=== PATIENT | female | born 1980 | race Caucasian/White ===

== ENCOUNTER 2019-11-13 16:37 | Emergency (ER) | payer OTHER, SELFPAY ==
[2019-11-13 16:50] VITALS: BP 110/87; PULSE 93; RESP 12; TEMP 36.9; O2SAT 96
[2019-11-13] MEDS: predniSONE 20 MG TABLET 60 MG PO (17:02)
--- NOTE | 2019-11-13 17:05 | ED.ABDPAIN ---
HPI - Abdominal Pain General Chief Complaint: Skin/Abscess/Foreign Body <Ranjit Acosta PA-C - Last Filed: 11/13/19 17:13> Stated Complaint: Spider bit <Ranjit Acosta PA-C - Last Filed: 11/13/19 17:13> Time Seen by Provider: 11/13/19 16:40 <Ranjit Acosta PA-C - Last Filed: 11/13/19 17:13> Source: patient <Ranjit Acosta PA-C - Last Filed: 11/13/19 17:13> Mode of arrival: ambulatory <Ranjit Acosta PA-C - Last Filed: 11/13/19 17:13> Limitations: no limitations <Ranjit Acosta PA-C - Last Filed: 11/13/19 17:13> History of Present Illness HPI narrative: Patient is a 39-year-old female who presents to emergency department for evaluation of rash to the posterior right thigh just below the buttock. Patient was camping on Saturday believes that she may have been bit by something is since developed a raised rash with burning and itching. Patient was started on doxycycline by primary care when the rash worsened Saturday. Patient on arrival resting comfortably in the room afebrile nontoxic-appearing no distress. Patient denies any other complaints <Ranjit Acosta PA-C - Last Filed: 11/13/19 17:13> Related Data Allergies/Adverse Reactions: Allergies Allergy/AdvReac Type Severity Reaction Status Date / Time No Known Allergies Allergy Mild Verified 11/13/19 16:54 <Ranjit Acosta PA-C - Last Filed: 11/13/19 17:13> Review of Systems Review of Systems: All systems reviewed & are unremarkable except as noted in HPI and below <Ranjit Acosta PA-C - Last Filed: 11/13/19 17:13> PMFSH Social History Social History: Social History (Updated 11/13/19 @ 17:06 by Ranjit Acosta PA-C) Smoking status: Never smoker <Ranjit Acosta PA-C - Last Filed: 11/13/19 17:13> Exam Narrative: Exam Narrative: GENERAL: Well-appearing, well-nourished, and in no acute distress. HEAD: Normocephalic, atraumatic. EYES: PERRLA and EOMI. ENT: Nares clear, no rhinorrhea or epistaxis. Mucous membranes moist. EXTREMITIES: Normal range of motion. No edema. SKIN: Warm, dry, patient with raised rash with a large patch over the right posterior thigh and other small areas with small raised lesions that appear to be fluid containing no lymphangitic streaking no fluctuance NEURO: No focal deficits. Alert and oriented x3. Neurovascularly intact PSYCH: Normal mood and affect. <Ranjit Acosta PA-C - Last Filed: 11/13/19 17:13> Course Course Emergency Course: Patient in the room in no distress at this time aware of case findings treatment plan and diagnosis <Ranjit Acosta PA-C - Last Filed: 11/13/19 17:13> Vital Signs Vital signs: Vital Signs Temperature 98.4 F 11/13/19 16:50 Pulse Rate 93 11/13/19 16:50 Respiratory Rate 12 11/13/19 16:50 Blood Pressure 110/87 11/13/19 16:50 Pulse Oximetry 96 11/13/19 16:50 Temperature 98.4 F 11/13/19 16:50 Pulse Rate 62 11/13/19 17:21 Respiratory Rate 14 11/13/19 17:21 Blood Pressure 111/70 11/13/19 17:21 Pulse Oximetry 99 11/13/19 17:21 <Ranjit Acosta PA-C - Last Filed: 11/13/19 17:13> Vital Signs Temperature 98.4 F 11/13/19 16:50 Pulse Rate 93 11/13/19 16:50 Respiratory Rate 12 11/13/19 16:50 Blood Pressure 110/87 11/13/19 16:50 Pulse Oximetry 96 11/13/19 16:50 Temperature 98.4 F 11/13/19 16:50 Pulse Rate 62 11/13/19 17:21 Respiratory Rate 14 11/13/19 17:21 Blood Pressure 111/70 11/13/19 17:21 Pulse Oximetry 99 11/13/19 17:21 <Elyse Ruelas MD - Last Filed: 12/05/19 13:09> MDM - Abdominal Pain MDM Narrative Medical decision making narrative: Patient in the room at this time aware of case findings treatment plan and diagnosis will be given a dose of steroid in the emergency department followed by tomorrow. Unclear as to whether or not this is Rhus dermatitis or a reaction to an insect bite. Patient advised to continue h
[2019-11-13 17:21] VITALS: BP 111/70; PULSE 62; RESP 14; O2SAT 99
== END 2019-11-13 17:23 | disposition home or self-care (01) ==
PROVIDERS: Emergency Provider Emergency Medicine; PCP Nurse Practitioner Adult Health
DX: R21 Rash and other nonspecific skin eruption (principal)
CPT/HCPCS: 99283; J7512

== ENCOUNTER 2022-01-24 13:56 | Outpatient (CLI) | payer OTHER, SELFPAY ==
--- NOTE | ~2022-01-24 | US_ITS ---
EXAMINATION: US venous doppler LE RT DATE: 01/24/2022 15:04 INDICATION: Right lower limb swelling TECHNIQUE: Mahmood scale images without and with compression and Doppler images of the right lower extre mity veins were obtained. COMPARISON: None FINDINGS: The right common femoral vein, profunda femoral vein, femoral vein, popliteal vein, peronea l trunk, posterior tibial veins, and greater saphenous vein are patent. No sonographic abnormality is seen in the anterior soft tissues of the leg in the area of clinical concern. IMPRESSION: 1. Patent right lower extremity veins. No evidence of deep venous thrombosis. Reviewed, dictated and finalized at location A.
== END 2022-01-24 13:57 | disposition home or self-care (01) ==
PROVIDERS: PCP Nurse Practitioner Adult Health; Visit Provider Nurse Practitioner Adult Health
DX: M79.661 Pain in right lower leg (principal)
CPT/HCPCS: 93971

== ENCOUNTER → 2022-01-30 12:20 | Outpatient (CLI) | payer OTHER, SELFPAY ==
--- NOTE | ~2022-01-30 | MM_ITS ---
EXAMINATION: MM screening [place] [facility] w esvin HISTORY: Screening TECHNIQUE: Craniocaudal and mediolateral oblique 3-D tomosynthesis images were obtained and synthetic 2-D images were generated. CAD analysis was submitted and interpreted. COMPARISON: No prior mammogram is available for comparison at this institution. BREAST PARENCHYMAL COMPOSITION: The breasts are heterogeneously dense, which may obscure small masses . FINDINGS: There is no evidence of suspicious mass, calcification, or architectural distortion to sugg est malignancy in either breast. There has been no suspicious interval change. IMPRESSION: 1. No mammographic evidence of malignancy. 2. Recommend routine screening mammography in one year. BI-RADS Category 1: Negative Reviewed, dictated and finalized at location A.
== END ==
PROVIDERS: PCP Nurse Practitioner Adult Health; Visit Provider Nurse Practitioner Adult Health
DX: Z12.31 Encounter for screening mammogram for malignant neoplasm of breast (principal)
CPT/HCPCS: 77063; 77067

== ENCOUNTER 2024-08-11 15:35 | Outpatient (CLI) | payer OTHER, SELFPAY ==
--- NOTE | ~2024-08-11 | MM_ITS ---
EXAMINATION: MM screening [place] [facility] w esvin HISTORY: Screening mammogram TECHNIQUE: Craniocaudal and mediolateral oblique 3-D tomosynthesis images were obtained and synthetic 2-D images were generated. CAD analysis was submitted and interpreted. COMPARISON: 01/30/2022 BREAST PARENCHYMAL COMPOSITION:Dense: The breasts are heterogeneously dense, which may obscure small masses. FINDINGS: No suspicious mass, calcification, or architectural distortion are identified in either al ast to suggest malignancy. There has been no suspicious interval change. IMPRESSION: No mammographic evidence of malignancy. Recommend routine screening mammography in one year. BI-RADS Category 1: Negative Reviewed, dictated and finalized at location . [employer]INCIPAL
== END 2024-08-11 15:36 | disposition home or self-care (01) ==
LOC: MICIMG 15:36
PROVIDERS: PCP Nurse Practitioner Adult Health; Visit Provider Obstetrics & Gynecology
DX: Z12.31 Encounter for screening mammogram for malignant neoplasm of breast (principal)
CPT/HCPCS: 77063; 77067

== ENCOUNTER 2025-07-21 11:36 | Emergency (ER) | payer OTHER, SELFPAY ==
--- OUTSIDE RECORDS SUMMARY | 2014-05-17 04:40 | XMS_ITS | Continuity of Care Document ---
Author Organization [facility] Address [address] [address] Phone Care Team Providers Care Manager Delivery Name Role Phone Gokul HARRIS, True Unavailable Unavailable Allergies, Adverse Reactions, Alerts Substance Reaction Status Criticality No Known Allergies Active No Inform ation Medications Medication Instructions Dosage Effective Dates (start - stop) Status Comments ranitidine 150 mg tablet take 1 tablet by oral route 2 times every day - Active Zyrtec 10 mg tablet take 1 tablet by oral route every day 10 MG - Active clobetasol 0.05 % topical cream apply by topical route 2 times every day a thin layer to the affected area(s) 0.00 - Active prednisone 10 mg tablet Take 6 tablets today and decrease by 1 tablet each day until finished - No Longer Active prednisone 20 mg tablet take (0.5MG/KG) by oral route every day 0.5 MG/KG - No Longer Active Procedures Procedure Date New (Level 4) OFFICE/OUTPATIENT VISIT Oc Advance Directives Directive Yes / No Effective Date File Name No Information Encounters Encounter Description Practice Location Reason(s) For Visit Diagnoses Date Provider Providers Copied on Encounter New (Level 4) OFFICE/OUTPA TIENT VISIT [facility], [address] [address], [place], [place], [id number], [place] tel:[phone] [facility] reaction, food (chief complaint) Idiopathic urticariaAllergic rhinitis, cause unspecifiedOther adverse food reactions, not elsewhere classified 4 Gokul Biswas. [address] [facility], [address], [place], [place], [id number] , [place]. tel:[phone] Referring Provider: True Parks, [address] [facility] [address], [place], [address] . tel:[phone] Family History Family Member Type Diagnosis Age At Onset Problem (finding) No family history of Au toimmune disease Problem (finding) No family history of Th yroid disorder Close relative Problem (finding) Hives Problem (finding) No family hist ory of Systemic lupus erythematosus Problem (finding) No family hist ory of Rheumatoid arthritis Payers Payer name Insurance type Covered green party ID Authoriza tion(s) No Information Social History Type Description Quantity Date Captured Comments Alcohol Use Details Unknown Caffeine Use Details Unknown Tobacco Use Status Never smoked tobacco 2013 Smoking Status Never smoker Non-Smoking Tobacco Use Details : No Details Available : No Details Available Sex Female Vital Signs Date / Time: Height Weight BMI Pulse Rate Blood Pressure Temperature Respiratory Rate Body Surface Area Head Circumference Head Circ. Percentile Wt./Akhil. Percentile BMI percentile Pulse Ox Inhaled Ox 10:30 AM 67.50 in 74.389 kg (164.00 lbs) 25.3 1 kg/m eter (2) 80 /min 118/74 mm[Hg] 98 % Chief Complaint And Reason For Visit From encounter dated '05/17/2014 10:40'. reaction, food (chief complaint). Description: Around 2014, she developed hives around 12:30 (after having eaten pasta, hot wings, crab cakes at 11:30), and she continued to have hives daily. She went to see her PCP on 05/07/2014, and she was treated with prednisone. The hives improved but didnot resolve when on prednisone. The hives worsened on 05/13/2014 after finishing prednisone on 05/11/2014. She inquires whether seafood exposure is the cause. She has not had coughing, wheezing, dyspnea, vomiting, diarrhea, abdominal pain, light- headedness, or other signs/symptoms of anaphylaxis associated with hives. She has not had any fevers, chills, unexplained changes in weight (gained 8 pounds in the past 2 months, but she is not eating as well and is not exercising), constipation, heat/cold intolerance, or arthralgias/arthritis. Most individual lesions last less than 24 hours but some last longer. The resolved lesions do not generally leave any residual pigmentary changes. She has not changed personal care products or medications. She is not taking any routine NSAIDs. She eats beef/pork at least 3 days per week. She has not had any recent tick bites, but she goes camping frequently. She used Jina 180mg every morning and Benadryl as needed, which helped with pruritus.NKDAPMH:AR, psoriasis, oral allergiesFH: cousin with hives; No SLE, RA, thyroid diseaseSH: no tobacco; 1 dog and 1 outside cat. Reason For Referral Reason For Referral No Information History Of Present Illness Encounter Date Complaint History Of Prese nt Illness reaction, food Around 2014 , she developed hives around 12:30 (after having eaten pasta, hot wings, crab cakes at 11:30), and she continued to have hives daily. She went to see her PCP on 05/07/2014, and she was treated with prednisone. The hives improved but did not resolve when on prednisone. The hives worsened on 05/13/2014 after finishing prednisone on 05/11/2014. She inquires whether seafood exposure is the cause. She has not had coughing, wheezing, dyspnea, vomiting, diarrhea, abdominal pain, light-headedness, or other signs/symptoms of anaphylaxis associated with hives. She has not had any fevers, chills, unexplained changes in weight (gained 8 pounds in the past 2 months, but she is not eating as well and is not exercising), constipation, heat/cold intolerance, or arthralgias/arthritis. Most individual lesions last less than 24 hours but some last longer. The resolved lesions do not generally leave any residual pigmentary changes. She has not changed personal care products or medications. She is not taking any routine NSAIDs. She eats beef/pork at least 3 days per week. She has not had any recent tick bites, but she goes camping frequently. She used Jina 180mg every morning and Benadryl as needed, which helped with pruritus.NKDAPMH: AR, psoriasis, oral allergiesFH: cousin with hives; No SLE, RA, thyroid diseaseSH: no tobacco; 1 dog and 1 outside cat. Functional Status Date Functional Assessmen t No Information Instructions Date Instruction Additional Infor laura If hives are not imp roving, the patient is to contact our office. Related to Idiopathic urticaria Assessments Type Assessment Date assessment Idiopathic urticaria assessment Allergic rhinitis, cause unspeci fied assessment Other adverse food reactions, no t elsewhere classified Patient Care Teams Name Effective Dates (start - stop) Status Members No Information
--- NOTE | ~2025-07-21 | XR_ITS ---
EXAMINATION: XR chest 2V DATE: 07/21/2025 12:53 INDICATION: Shortness of breath and chest pain TECHNIQUE: PA and lateral views of the chest were obtained. COMPARISON: None FINDINGS: The lungs are clear with no focal airspace opacities, pulmonary edema, pleural effusion or pneumothorax. The cardiomediastinal silhouette is normal. Mild to moderate lower thoracic spondylosis. IMPRESSION: 1. No acute cardiopulmonary disease. Reviewed, dictated and finalized at location A. FURNITURE [employer]KER
--- NOTE | 2025-07-21 11:37 | ECG_ITS ---
Test Date: 2025-07-21 11:41:35 Measurements Intervals Calvin Rate: 84 P: 55 AR: 152 QRS: 66 QRSD: 88 T: 37 QT: 331 QTc: 391 Interpretive Statements SINUS RHYTHM BASELINE ARTIFACT- I, II, AVR, AVL, V3 NORMAL ECG No previous ECG available for comparison Electronically Signed On 07-21-2025 18:54:03 SCRAP CHARGER by Terry Griffin D.O.
--- OUTSIDE RECORDS SUMMARY | 2025-07-21 11:38 | XMS_ITS | Encounter Summary ---
Author Organization [facility] Address [address] [place] [address] Care Team Providers Care Surveillance Sensor Officer Name Role Phone Deann Espitia Primary Care Provider [phone] Encounter Details Date Type Department Care Team (Late st Contact Info) Description 04/01/2024 Oh[place]at Message Enc [facility] Family [facility] Internal Medicine [facility] [address] [place] [address] Deann Espitia FNP [address] [place], [place] [phone] refill question Social History Tobacco Use Types Packs/Day Years Used Date Smoking Tobacco: Former Cigarettes Q uit: 02/27/2019 Passive Smoke Exposure: Past Smokeless Tobacco: Never Alcohol Use Standard Drinks/Week Comments Yes 0 (1 standard drink = 0.6 oz pur e alcohol) 5 days a week PHQ-2 Answer Date Recorded Patient Health Questionnaire-2 Score 1 02/28/2024 Comments No Sex and Gender Information Value Date Recorded Sex Assigned at Female 05/31/2025 2:22 PM BANKING OFFICER Legal Sex Female 10:39 AM BANKING OFFICER Gender Identity Female 05/31/2025 2:22 PM BANKING OFFICER Sexual Orientation Not on file documented as of this encounter Progress Notes * Diego Mcgrath, RTR - 04/01/2024 2:01 PM CDTFrom: Danita Cuello To: Deann Espitia Sent: 04/01/2024 1:23 PM CDT Subject: refill question I am almost finished with the phentermine. Do I need to come in and see you before a refill? I started with only a 1/2 pill for the first 5 days. documented in this encounter Plan of Treatment Not on file documented as of this encounter Visit Diagnoses Not on filedocumented in this encounter Additional Health Concerns Assessment Noted Time PHQ-9 Depression Total Score: 8 02/28/20 24 1:17 PM CDT documented as of this encounter Care Teams Surveillance Sensor Officer Relationship Specialty Start Date End Date Deann Espitia FNP [address] [place] [id number] PCP - General Nurse Practitioner Family 02/28/24 documented as of this encounter
--- OUTSIDE RECORDS SUMMARY | 2025-07-21 11:38 | XMS_ITS | Clinical Summary ---
Author Organization [facility] Address [address] [place] [address] Care Team Providers Care Scrum Product Owner Name Role Phone Deann Espitia DIMITRIOS Primary Care Provider [phone] Allergies Active Allergy Reactions Criticality Noted Date Comments Pineapple Hives,Itching 02/27/2024 Medications B complex-C Cap capsule Take 1 capsule by mouth daily. Active phentermine (ADIPEX-P) 37.5 MG tabletIndicatio ns:Overweight with body mass index (BMI) of 27 to 27.9 in adult Take 0.5-1 tablets (18.75-37.5 mg total) by mouth every morning before breakfast. # thirty 30 tablet 03/18/2025 Active phentermine (ADIPEX-P) 37.5 MG capsuleIndicati ons:Overweight with body mass index (BMI) of 28 to 28.9 in adult Take 1 capsule (37.5 mg total) by mouth before breakfast. 30 capsule 1 05/31/2025 Active topiramate (TOPAMAX) 25 MG tabletIndicatio ns:Overweight with body mass index (BMI) of 28 to 28.9 in adult Take 1 tablet (25 mg total) by mouth daily. 90 tablet 1 05/31/2025 Active Active Problems Problem Noted Date Diagnosed Date Intermittent palpitations 05/31/2025 Elevated low density lipoprotein (LDL) cholester ol level 06/01/2024 Overweight with body mass in dex (BMI) of 28 to 28.9 in adult 02/28/2024 Tick bite, unspecified site, subsequent encounte r 02/28/2024 Polyarthralgia 02/28/2024 Family history of diabetes mellitus (DM) 024 Chronic fatigue 02/28/2024 Vitamin D deficiency, unspecified 02/28/2024 Psoriasis 02/28/2024 Rosacea 02/28/2024 Resolved Problems Problem Noted Date Diagnosed Date Resolved Date Ankle pain 02/27/2024 05/31/2025 Encounters Date Type Department Care Team Description 06/29/2025 Results Follow-Up [facility] [address] [address] Deann Espitia FNP HEMOGLOBIN, GLYCOSYLATED, MAGNESIUM, FOLIC ACID SERUM, Additional followed-up results: 8 06/28/2025 9:20 AM CASH CROP FARMER Laboratory Only [address] [address] Deann Espitia FNP 06/28/2025 Travel 05/31/2025 2:20 PM CASH CROP FARMER Office Visit [facility] [address] [address] Deann Espitia FNP Annual (No concerns); Menopause (Pt has concerns she may be in perimenopause ) 05/31/2025 Travel from Last 3 Months Immunizations Immunization Administration Dates Next Due Influenza Adult (Generic) 05/14/2016 Tdap (Adacel) 06/01/2024 Family History Medical History Relation Comments Hypertension Father Cancer Maternal Grandfather pancreatic Alzheimer's disease Maternal Grandmother Cancer Maternal Grandmother Hypertension Mother Cancer Paternal Grandfather Heart Disease Paternal Grandmother Relation Status Comments Father Alive Maternal Grandfather Maternal Grandmother Mother Alive Paternal Grandfather Paternal Grandmother (Age 57) Social History Tobacco Use Types Packs/Day Years Used Date Smoking Tobacco: Former Cigarettes Q uit: 02/27/2019 Passive Smoke Exposure: Past Smokeless Tobacco: Never Tobacco Cessation:Counseling Given: No Comments:Vape Alcohol Use Standard Drinks/Week Comments Yes 0 (1 standard drink = 0.6 oz pure alcohol) 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 3-5 a day PHQ-2 Answer Date Recorded Patient Health Questionnaire-2 Score 0 05/31/2025 Comments No Sex and Gender Information Value Date Recorded Sex Assigned at Female 05/31/2025 2:22 PM CASH CROP FARMER Legal Sex Female 10:39 AM CASH CROP FARMER Gender Identity Female 05/31/2025 2:22 PM CASH CR[employer] FARMER Sexual Orientation Not on file Last Filed Vital Signs Vital Sign Reading Time Taken Comments Blood Pressure 112/68 05/31/2025 2:18 PM CASH CR[employer] FARMER Pulse 87 05/31/2025 2:18 PM [employer] FARMER Temperature 36.8 C (98.2 F) 05/31/2025 2:18 PM CASH CR[employer] FARMER Respiratory Rate 16 05/31/2025 2:18 PM CASH CROP FARMER Oxygen Saturation 98% 05/31/2025 2:18 PM CASH CROP FARMER Inhaled Oxygen Concentration - - Weight 84.8 kg (187 lb) 05/31/2025 2:18 PM CASH CROP FARMER Height 172.7 cm (5' 8) 05/31/2025 2:18 PM CASH CROP FARMER Body Mass Index 28.43 05/31/2025 2:18 PM CASH CROP FARMER Plan of Treatment Health Maintenance Due Date Last Done Comments Cervical Cancer Screening Pa p Smear (Age 30 to 64) Every 3 Years 1981 Annual Physical 1984 HPV Vaccines (1 - 3-dose SCD M series) 2008 Cervical Cancer Screening Pa p with HPV Testing (Age 30 to 64) Every 5 Years 2011 Mammogram Screening 08/31/2025 01/30/2022 Postpone d from 01/31/2024 (Future Appointment) COVID-19 Vaccine (3 - 2024-2 6 season) 2026 04/04/2021, 03/13/2021 Postponed from 03/29/2025 (Patient Refused) Cervical Cancer Screening with HPV 05/31/2026 Postponed from 05/04 (Going to Outside Clinic) Hepatitis B Vaccines (1 of 3 - 19+ 3-dose series) 05/31/2026 Postponed from 01/2000 (Patient/Guardian Refusal) Influenza Adult (#1) 2026 05/14/2016 Postpon ed from 04/28/2025 (Patient Refused) DTaP, Tdap and Td Vaccines ( 2 - Td or Tdap) 06/01/2034 06/01/2024 Hepatitis C Completed 03/09/2024 PHQ-2 (Physician [place]) Completed 05/31/2025 Hepatitis A Vaccines Aged Out No long er eligible based on patient's age to complete this topic Meningococcal B Vaccine Aged Out No l onger eligible based on patient's age to complete this topic Meningococcal Vaccine Aged Out No scott reta eligible based on patient's age to complete this topic Pneumococcal Vaccine: Pediatrics (0 to 5 Years) and At-Risk Patients (6 to 49 Years) Aged Out No longer eligible b ased on patient's age to complete this topic RSV Immunizations Under 20 Months Aged Out No longer eligible b ased on patient's age to complete this topic Procedures Procedure Name Priority Date/Time Associated Diagnosis Comments COLLECTION VENOUS BLOOD VENIPUNCTURE Routine 06/28/2025 9:27 AM CASH CROP FARMER Overweight with body mass index (BMI) of 28 to 28.9 in adult Family history of diabetes mellitus (DM) Polyarthralgia Intermittent palpitations Elevated low density lipoprotein (LDL) cholesterol level Vitamin D deficiency, unspecified GENERAL HEALTH PANEL Routine 06/28/2025 9:26 AM CASH CROP FARMER Overweight with body mass index (BMI) of 28 to 28.9 in adult Elevated low density lipoprotein (LDL) cholesterol level LIPID PANEL Routine 06/28/2025 9:26 AM CASH CR[employer] FARMER Overweight with body mass index (BMI) of 28 to 28.9 in adult Elevated low density lipoprotein (LDL) cholesterol level TSH W/REFLEX Routine 06/28/2025 9:26 AM CASH CR[employer] FARMER Overweight with body mass index (BMI) of 28 to 28.9 in adult Elevated low density lipoprotein (LDL) cholesterol level VITAMIN D, 25 OH Routine 06/28/2025 9:26 AM CASH CROP FARMER Vitamin D deficiency, unspecified URIC ACID BLOOD Routine 06/28/2025 9:26 AM CASH CROP FARMER Overweight with body mass index (BMI) of 28 to 28.9 in adult Elevated low density lipoprotein (LDL) cholesterol level COMPREHENSIVE METABOLIC PANEL Routine 06/28/2025 9:26 AM CASH CROP FARMER Overweight with body mass index (BMI) of 28 to 28.9 in adult Elevated low density lipoprotein (LDL) cholesterol level URINALYSIS Routine 06/28/2025 9:26 AM CASH CR[employer] FARMER Overweight with body mass index (BMI) of 28 to 28.9 in adult Elevated low density lipoprotein (LDL) cholesterol level VITAMIN B-12 Routine 06/28/2025 9:26 AM CASH CROP FARMER Overweight with body mass index (BMI) of 28 to 28.9 in adult Polyarthralgia Intermittent palpitations FOLIC ACID SERUM Routine 06/28/2025 9:26 AM CASH CROP FARMER Overweight with body mass index (BMI) of 28 to 28.9 in adult Polyarthralgia Intermittent palpitations MAGNESIUM Routine 06/28/2025 9:26 AM CASH CR[employer] FARMER Overweight with body mass index (BMI) of 28 to 28.9 in adult Polyarthralgia Intermittent palpitations HEMOGLOBIN, GLYCOSYLATED Routine 06/28/2025 9:26 AM CASH CROP FARMER Overweight with body mass index (BMI) of 28 to 28.9 in adult Family history of diabetes mellitus (DM) HEPATITIS C ANTIBODY Routine 03/09/2024 7:29 AM CDT Adult BMI 28.0-28.9 kg/sq m Encounter for hepatitis C screening test for low risk patient MAMMOGRAM GENERIC (SCAN ORDER) 01/30/2022 from Last 3 Months or Most Recently Relevant to Health Maintenance Results * VITAMIN D, 25 OH (06/28/2025 9:26 AM CASH CROP FARMER) VITAMIN D 25 HYDROXY TOTAL S/P/B 43.2 30 - 100 NG/ML 06/28/2025 5:31 PM CASH CROP FARMER [facility] Comment: DEFICIENT <20 INSUFFICIENT 20-30 SUFFICIENT 30-100 06/28/2025 9:26 AM CASH CROP FARMER us Deann Espitia [employer]KING [employer]ACH[employer] SUPERVISOR LABORATORY Final Result [facility] [address] [facility] [place] [place] [address], [place] [phone] * VITAMIN B-12 (06/28/2025 9:26 AM CASH CROP FARMER) VITAMIN B12 S/P/B 526 193 - 986 PG/ML 06/28/2025 5:31 PM CASH CROP FARMER [facility] 06/28/2025 9:26 AM CASH CROP FARMER Deann Iversonalex [facility] Final Result [facility] [address] [place] [address], * (ABNORMAL) URINALYSIS (06/28/2025 9:26 AM CASH CROP FARMER) COLOR (U) YELLOW 06/28/2025 4:26 PM [facility] TRANSPARENCY CLEAR CLEAR 06/28/2025 4:26 PM [facility] SPECIFIC GRAVITY (U) <1.005 1.003 - 1.040 06/28/2025 4:26 PM [facility] U PH 6.5 5.0 - 9.0 06/28/2025 4:26 PM CASH CROP FARMER [facility] PROTEIN RANDOM (U) NEGATIVE NEGATIVE 06/28/2025 4:26 PM [facility] GLUCOSE (U) NEGATIVE NEGATIVE 06/28/2025 4:26 PM [facility] KETONES MG/DL (U) NEGATIVE NEGATIVE 06/28/2025 4:26 PM [facility] BILIRUBIN (U) NEGATIVE NEGATIVE 06/28/2025 4:26 PM [facility] BLOOD (U) NEGATIVE NEGATIVE 06/28/2025 4:26 PM [facility] UROBILINOGEN 0.2 0.0 - 2.0 EU/DL 06/28/2025 4:26 PM CASH CROP FARMER [facility] NITRITES NEGATIVE NEGATIVE 06/28/2025 4:26 PM CASH CROP FARMER [facility] LEUKOCYTES (U) TRACE(A) NEGATIVE 06/28/2025 4:26 PM CASH CROP FARMER [facility] RBC/HPF 0-3 0 - 3 /HPF 06/28/2025 4:26 PM CASH CROP FARMER [facility] WBC/HPF 0-3 0 - 3 /HPF 06/28/2025 4:26 PM CASH CROP FARMER [facility] EPI/HPF 4-9 /HPF 06/28/2025 4:26 PM CASH CROP FARMER [facility] BACTERIA (U) TRACE(A) NONE SEEN 06/28/2025 4:26 PM CASH CROP FARMER [facility] URINE SPECIMEN OBTAINED BY CLEAN CATCH PROCEDURE / Unknown 06/28/2025 9:26 AM CASH CROP FARMER Deann Espitia [facility] URINE ORDERABLES Final Result Performing Organization Address City/[facility]/ZIP Co de Phone Number [facility] [address], * URIC ACID BLOOD (06/28/2025 9:26 AM CASH CROP FARMER) URIC ACID 3.7 2.6 - 6.0 MG/DL 06/28/2025 4:59 PM CASH CROP FARMER [facility] 06/28/2025 9:26 AM CASH CROP FARMER Deann Espitia [facility] Final Result [facility] [place] [id number] [place] [address], * MAGNESIUM (06/28/2025 9:26 AM CASH CROP FARMER) MAGNESIUM 2.2 1.8 - 2.4 MG/DL 06/28/2025 5:31 PM CASH CROP FARMER [facility] 06/28/2025 9:26 AM CASH CROP FARMER Deannraz Iversonalex [facility] Final Result [facility] [place] [address] [facility] [place] [address], [place] [phone] * (ABNORMAL) LIPID PANEL (06/28/2025 9:26 AM CASH CROP FARMER) CHOLESTEROL 196 <200 MG/DL 06/28/2025 5:31 PM CASH CROP FARMER [facility] TRIGLYCERIDES 94 <150 MG/DL 06/28/2025 5:31 PM CASH CROP FARMER [facility] HDL 68 >40 MG/DL 06/28/2025 5:31 PM CASH CROP FARMER [facility] LDL-C 109(H) <100 MG/DL 06/28/2025 5:31 PM CASH CROP FARMER [facility] VLDL CALCULATION 19 5 - 28 MG/DL 06/28/2025 5:31 PM CASH CROP FARMER [facility] CHOL/HDL RATIO 2.9 0.0 - 4.0 06/28/2025 5:31 PM CASH CROP FARMER [facility] LDL/HDL 1.6 0.41 - 2.13 06/28/2025 5:31 PM [facility] NON HDL CHOLESTEROL 128 <140 MG/DL 06/28/2025 5:31 PM CASH CROP FARMER [facility] 06/28/2025 9:26 AM CASH CROP FARMER us Deann [facility] Final Result [facility] [place] [address] [facility] [place] [place] [address], [place] [phone] * HEMOGLOBIN, GLYCOSYLATED (06/28/2025 9:26 AM CASH CROP FARMER) HGB A1C 5.0 4.5 - 6.2 % 06/28/2025 7:04 PM CASH CROP FARMER [facility] ESTIMATED AVG GLUCOSE 97 74 - 106 MG/DL 06/28/2025 7:04 PM CASH CROP FARMER [facility] 06/28/2025 9:26 AM CASH CROP FARMER Deann Espitia [facility] Final Result [facility] [place] [address] [place] [address], [place] [phone] * FOLIC ACID SERUM (06/28/2025 9:26 AM CASH CROP FARMER) Pathologist [facility] FOLATE 12.8 8.6 - 58.9 NG/ML 06/29/2025 9:57 AM CASH CROP FARMER [facility] 06/28/2025 9:26 AM CASH CROP FARMER us Deann NASHP LABORAT[facility] Final Result [facility] [place] [address] [place] [address], [place] [phone] * COMPREHENSIVE METABOLIC PANEL (06/28/2025 9:26 AM CASH CROP FARMER) Pathologist [facility] SODIUM S/P/B 138 136 - 145 MMOL/L 06/28/2025 5:31 PM CASH CROP FARMER [facility] POTASSIUM S/P/B 4.4 3.5 - 5.1 MMOL/L 06/28/2025 5:31 PM [facility] CHLORIDE S/P/B 102 98 - 107 MMOL/L 06/28/2025 5:31 PM [facility] CO2 28.1 21 - 32 MMOL/L 06/28/2025 5:31 PM CASH CROP FARMER [facility] GLUCOSE 96 70 - 99 MG/DL 06/28/2025 5:31 PM [facility] BUN 11 7 - 18 MG/DL 06/28/2025 5:31 PM [facility] CREATININE S/P/B 0.77 0.55 - 1.02 MG/DL 06/28/2025 5:31 PM [facility] CALCIUM S/P/B 8.9 8.4 - 10.5 MG/DL 06/28/2025 5:31 PM [facility] BILIRUBIN TOTAL S/P/B 0.7 0.2 - 1.0 MG/DL 06/28/2025 5:31 PM [facility] ALKALINE PHOSPHATASE S/P/B 58 37 - 98 U/L 06/28/2025 5:31 PM [facility] AST 17 15 - 37 U/L 06/28/2025 5:31 PM [facility] ALT 32 14 - 59 U/L 06/28/2025 5:31 PM [facility] TOTAL PROTEIN S/P/B 7.3 6.4 - 8.2 G/DL 06/28/2025 5:31 PM [facility] ALBUMIN S/P/B 3.8 3.4 - 5.0 G/DL 06/28/2025 5:31 PM [facility] ANION GAP 7.9 5 - 15 MMOL/L 06/28/2025 5:31 PM [facility] Comment:REFERENCE RANGE NOT ESTABLISHED OSMOLALITY (CALC) 285 MOSM/KG 025 5:31 PM [facility] Comment:REFERENCE RANGE NOT ESTABLISHED GFR ESTIMATE >90 >90 ML/MIN/1. 73 M2 06/28/2025 5:31 PM [facility] GFR NOTES GFR REFERENCE S: 06/28/2025 5:31 PM [facility] Comment: THE ESTIMATED GFR IS CALCULATED USING THE 2020 CKD-EPI EQUATION. THE FOLLOWING CATEGORIES FOR GRADING RENAL FUNCTION ARE RECOMMENDED BY THE INTERNATIONAL SOCIETY OF NEPHROLOGY (KDIGO 2012 CLINICAL PRACTICE GUIDELINE). G1,NORMAL OR HIGH: >89 ml/min/1.73 m2 G2,MILDLY DECREASED: 60-89 ml/min/1.73 m2 G3A,MILDLY TO MODERATELY DECREASED: 45-59 ml/min/1.73 m2 G3B,MODERATELY TO SEVERELY DECREASED: 30-44 ml/min/1.73 m2 G4,SEVERELY DECREASED: 15-29 ml/min/1.73 m2 G5,KIDNEY FAILURE: <15 ml/min/1.73 m2 06/28/2025 9:26 AM CASH CROP FARMER Deann Espitia [facility] Final Result [facility] [address] [place] [address], * CBC W/DIFF (06/28/2025 9:26 AM CASH CROP FARMER) WBC 6.01 4.00 - 10.80 x10'3/uL 06/28/2025 3:57 PM CASH CROP FARMER [facility] RBC 4.60 4.10 - 5.40 x10'6/uL 06/28/2025 3:57 PM CASH CROP FARMER [facility] HGB 14.0 12.0 - 16.0 G/DL 06/28/2025 3:57 PM CASH CROP FARMER [facility] HCT 42.2 36.0 - 47.0 % 06/28/2025 3:57 PM CASH CROP FARMER [facility] MCV 91.7 78.0 - 100.0 FL 06/28/2025 3:57 PM CASH CROP FARMER [facility] MCH 30.4 27.0 - 31.0 PG 06/28/2025 3:57 PM CASH CROP FARMER [facility] MCHC 33.2 33.0 - 36.0 G/DL 06/28/2025 3:57 PM CASH CROP FARMER [facility] RDW 12.6 11.5 - 14.5 % 06/28/2025 3:57 PM [facility] PLT 344 150 - 350 x10'3/uL 06/28/2025 3:57 PM [facility] MPV 9.3 7.4 - 10.4 FL 06/28/2025 3:57 PM [facility] DIFFERENTIAL TYPE AUTOMATED DIFFERENTIAL 06/28/2025 3:57 PM [facility] NEUTROPHILS % 53.5 % 06/28/2025 3:57 PM [facility] LYMPHOCYTES % 31.9 % 06/28/2025 3:57 PM [facility] MONOCYTES % 7.8 % 06/28/2025 3:57 PM [facility] EOSINOPHILS % 6.3 % 06/28/2025 3:57 PM [facility] BASOPHILS % 0.3 % 06/28/2025 3:57 PM [facility] IMMATURE GRANS % 0.2 % 06/28/2025 3:57 PM [facility] ABS. NEUTROPHILS 3.21 1.60 - 8.30 x10'3/uL 06/28/2025 3:57 PM [facility] ABS. LYMPHOCYTES 1.92 0.80 - 4.70 x10'3/uL 06/28/2025 3:57 PM [facility] ABS. MONOCYTES 0.47 0.00 - 1.50 x10'3/uL 06/28/2025 3:57 PM [facility] ABS. EOSINOPHILS 0.38 0.00 - 0.40 x10'3/uL 06/28/2025 3:57 PM [facility] ABS. BASOPHILS 0.02 0.00 - 0.20 x10'3/uL 06/28/2025 3:57 PM [facility] ABS. IMMATURE GRANULOCYTES 0.01 0.00 - 0.03 x10'3/uL 06/28/2025 3:57 PM CASH CROP FARMER [facility] 06/28/2025 9:26 AM CASH CROP FARMER Deann Espitia [facility] Final Result Performing Organization Address [facility] Co de Phone Number [facility] [address] [place] [address], [place] [phone] * TSH W/REFLEX (06/28/2025 9:26 AM CASH CROP FARMER) TSH 2.714 0.358 - 3.740 uIU/ML 06/28/2025 5:31 PM CASH CROP FARMER [facility] 06/28/2025 9:26 AM CASH CROP FARMER Deann Espitia [facility] Final Result Performing Organization Address [facility] de Phone Number [address] [address], [place] [phone] * HEPATITIS C ANTIBODY ([facility] ONLY) (03/09/2024 7:29 AM CDT) Pathologist [facility] HEPATITIS C AB NON-REACTI VE NON-REACT BRYCE 03/09/2024 6:54 PM CDT [facility] Comment: ANTIBODIES TO HCV NOT DETECTED. DOES NOT EXCLUDE THE POSSIBILITY OF EXPOSURE TO HCV. 03/09/2024 7:29 AM CDT Deann Espitia [facility] Final Result Performing Organization Address City/[facility] Co de Phone Number [facility] [address] [place] [address], [place] [phone] * MAMMOGRAM GENERIC (SCAN ORDER) (01/30/2022) Anatomical Region Laterality Modality Other 01/30/2022 us [facility] Scanned SCANNING Final Resu lt from Last 3 Months or Most Recently Relevant to Health Maintenance Insurance [facility] Care Teams Scrum Product Owner Relationship Specialty Start Date End Date Deann Espitia FNP [address] [place] [id number] PCP - General Nurse Practitioner Family 02/28/24
--- OUTSIDE RECORDS SUMMARY | 2025-07-21 11:38 | XMS_ITS | Encounter Summary ---
Author Organization [facility] Address [address] [place] [address] Care Team Providers Care Well Service Floorperson Name Role Phone Deann Espitia Primary Care Provider [phone] Encounter Details Date Type Department Care Team (Late st Contact Info) Description 06/29/2025 Results Follow-Up [facility] Family & Internal Medicine - [place] [address] [place] [address] Deann Espitia FNP [address] [place], [place] [id number] HEMOGLOBIN, GLYCOSYLATED, MAGNESIUM, FOLIC ACID SERUM, Additional followed-up results: 8 Social History Tobacco Use Types Packs/Day Years Used Date Smoking Tobacco: Former Cigarettes Q uit: 02/27/2019 Passive Smoke Exposure: Past Smokeless Tobacco: Never Comments:Vape Alcohol Use Standard Drinks/Week Comments Yes 0 (1 standard drink = 0.6 oz pure alcohol) 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 3-5 a day PHQ-2 Answer Date Recorded Patient Health Questionnaire-2 Score 0 05/31/2025 Comments No Sex and Gender Information Value Date Recorded Sex Assigned at Female 05/31/2025 2:22 PM STRING CUTTER Legal Sex Female 10:39 AM STRING CUTTER Gender Identity Female 05/31/2025 2:22 PM STRING CUTTER Sexual Orientation Not on file documented as of this encounter Progress Notes * DIMITRIOS Roblero - 06/29/2025 12:03 PM CST Labs show that she needs to continue working on a heart healthy diet low in saturated fats Her A1c is good at 5.0 Her thyroid levels look good She should be taking a daily multivitamin She should increase her D3 supplementing to at least 5000 IUs of D3 daily Other labs look good NG CUTTER documented in this encounter Plan of Treatment Not on file documented as of this encounter Visit Diagnoses Not on filedocumented in this encounter Additional Health Concerns Assessment Noted Time PHQ-9 Depression Total Score: 4 05/31/20 25 2:43 PM STRING CUTTER documented as of this encounter Care Teams Well Service Floorperson Relationship Specialty Start Date End Date Deann Espitia FNP [address] [place] [address] PCP - General Nurse Practitioner Family 02/28/24 documented as of this encounter
[2025-07-21 11:50] VITALS: BP 130/88; PULSE 88; RESP 20; TEMP 36.6; O2SAT 100
--- NOTE | 2025-07-21 14:30 | ED_ITS ---
HPI - Chest Pain General Chief Complaint: Chest Pain Stated Complaint: chest pain X1.5 hours Time Seen by Provider: 07/21/25 14:31 Focused HPI: Patient is a 45-year-old female who presents the ED with report of chest pain. Patient reports having tightness in her midsternal chest. States pain began around 9am this morning. Has been constant since the onset. Worse with deep breathing. Denies recent cough/cold sx's, SOB, pain/swelling in legs. Denies hx of heart disease, blood clots, HTN, HLD, DM. Reports FHx of heart disease. Patient reports vaping. GENERAL: Well-appearing, well-nourished, and in no acute distress. HEAD: Normocephalic, atraumatic. CHEST: Clear to auscultation. ?No respiratory distress. No focal lung sounds HEART: Regular rate and rhythm.? MSK: Mild TTP along lower midsternal anterior chest wall NEURO: ?Alert and oriented x3. Patient screened in triage and initial orders placed.? ?Additional care and disposition to be based upon?diagnostic testing and treatment. Source: patient Mode of arrival: ambulatory Limitations: no limitations Related Data Home Medications ?Medication ?Instructions ?Recorded ?Confirmed ?Last Taken ?Type levonorgestrel (Mirena) 1 device intrauterine ONCE 1 09/05/24 07/05/25 Unknown History phentermine 37.5 mg capsule 37.5 mg PO DAILY 07/05/25 07/05/25 Unknown History Allergies Allergy/AdvReac Type Severity Reaction Status Date / Time No Known Allergies Allergy Mild Verified 07/21/25 11:49 PMFSH Surgical History Surgical History History of ear surgery Family History Family History Grandparent Cancer Acute myocardial infarction Pancreatic cancer Social History Social History Smoking status: Never smoker Alcohol intake: current Alcohol use details: occas Substance use: never Course Vital Signs Vital signs: Vital Signs Temperature 97.9 F 07/21/25 11:50 Pulse Rate 88 07/21/25 11:50 Respiratory Rate 20 07/21/25 11:50 Blood Pressure 130/88 07/21/25 11:50 Pulse Oximetry 100 07/21/25 11:50 Oxygen Delivery Room Air 07/21/25 11:50 Temperature 97.9 F 07/21/25 11:50 Pulse Rate 88 07/21/25 11:50 Respiratory Rate 20 07/21/25 11:50 Blood Pressure 130/88 07/21/25 11:50 Pulse Oximetry 100 07/21/25 11:50 Oxygen Delivery Room Air 07/21/25 11:50 MDM MDM Narrative Medical decision making narrative: MSE by DONN in triage Differential Diagnosis Differential Diagnosis: chest pain, atypical CP, chest wall pain, pleurisy, gerd Lab Data 07/21/25 18:30 07/21/25 18:30 Labs: Lab Results 07/21/25 Range/Units 18:30 WBC 9.5 (4.5-10.0) K/mm3 RBC 4.77 (4.2-5.4) M/mm3 Hgb 14.5 (12.0-15.0) g/dL Hct 42.6 (37.0-47.0) % MCV 89.3 (80-100) fl MCH 30.4 (26-34) pg MCHC 34.0 (32-36) g/dl RDW 12.8 (11.5-14.5) % Plt Count 365 (150-375) k/mm3 MPV 8.4 (7.4-10.4) fl Immature Gran % (Auto) 0.2 (0-0.5) % Neut % (Auto) 51.3 (45.5-73.1) % Lymph % (Auto) 34.0 (18.3-44.2) % [place] % (Auto) 7.8 (2.6-8.5) % Eos % (Auto) 6.2 H (0-4.4) % Baso % (Auto) 0.5 (0.2-1.2) % Lymph # (Auto) 3.22 H (0.9-3.2) K/mm3 [place] # (Auto) 0.7 H (0.1-0.6) K/mm3 Eos # (Auto) 0.6 H (0-0.3) K/mm3 Baso # (Auto) 0.1 (0.0-0.1) K/mm3 Abs Immat Gran (auto) 0.02 (0.00-0.031) K/mm3 Absolute Neuts (auto) 4.8 (1.3-6.7) K/mm3 Absolute Nucleated RBC 0.000 (0.0-0.012) K/mm3 Nucleated RBC % 0.0 (0.0-0.2) % PT 13.2 (11.1-14.7) Seconds INR 1.0 APTT 26.6 (22.3-36.8) Seconds D-Dimer 0.35 (<0.48) ug/mL Sodium 137 (137-145) mmol/L Potassium 3.4 (3.4-5.0) mmol/L Chloride 102 (98-107) mmol/L Carbon Dioxide 23 (22-30) mmol/L Anion Gap 12 (4-12) mmol/L BUN 10 (7-17) mg/dL Creatinine 0.74 (0.7-1.0) mg/dL Estim Creat Clear Calc 95 ml/min Estimated GFR > 60 (59 - ) Glucose 96 (65-110) mg/dL Calcium 9.3 (8.4-10.2) mg/dL Total Bilirubin 0.5 (0.2-1.3) mg/dL AST 25 (14-36) U/L ALT 27 (6-35) U/L Alkaline Phosphatase 67 (38-126) U/L Troponin I < 0.012 (0.000-0.034) ng/mL Total Protein 8.9 H (6.3-8.2) g/dL Albumin 4.9 (3.5-5.1) g/dL Lipase 75 (23-300) U/L Imaging Data Radiologist's impression: ITS Impressions Chest X-Ray 07/21/25 12:55 IMPRESSION: 1. No acute cardiopulmonary disease. Discharge Plan Discharge Clinical Impression: Atypical chest pain Patient Disposition: Home Condition: Stable Instructions: Chest Wall Pain (ED) Additional Instructions: RETURN IF SYMPTOMS ARE WORSENING , CALL YOUR FAMILY PHYSICIAN FOR APPOINTMENT, TAKE TYLENOL NEEDED FOR ACHES AND PAIN, CONTINUE HOME MEDICATIONS. MASSAGE HEATING PAD EXERCISE Patient Language: Turkish Prescriptions: New naproxen [Naprosyn] 500 mg tablet 500 mg PO BID PRN (Reason: pain) Qty: 14 0RF cyclobenzaprine 10 mg tablet 10 mg PO TID PRN (Reason: muscle spasm) Qty: 20 0RF No Action phentermine 37.5 mg capsule 37.5 mg PO DAILY Rx Instructions: must administer 30 minutes before or 1-2 hours after breakfast Mirena 21 mcg/24hr (up to 8 yrs) 52 mg intrauterine device 1 device intrauterine ONCE Rx Instructions: as a single dose Follow-up/Referrals: RUKHSANA,JONNY FRIAS [Primary Care Provider]
--- NOTE | 2025-07-21 18:28 | ED_ITS ---
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 PATIENT BEEN CLEANING BEFORE OVER THE LAST 2-3 DAYS, REACHING UP HIGH TO GET STUFF OF SHELVES. SHE DENIES ANY FEVER, CHILLS, NAUSEA, VOMITING UPPER RESPIRATORY SYMPTOMS. PATIENT IS HEALTHY OTHERWISE. SHE VAPES, DRINK ALCOHOL ALMOST DAILY, USES MARIJUANA OCCASIONALLY Related Data Home Medications ?Medication ?Instructions ?Recorded ?Confirmed ?Last Taken ?Type levonorgestrel (Mirena) 1 device intrauterine ONCE 1 09/05/24 07/05/25 Unknown History phentermine 37.5 mg capsule 37.5 mg PO DAILY 07/05/25 07/05/25 Unknown History Allergies Allergy/AdvReac Type Severity Reaction Status Date / Time No Known Allergies Allergy Mild Verified 07/21/25 11:49 Review of Systems 2 Review of Systems: All systems reviewed & are unremarkable except as noted in HPI and below PMFSH Surgical History Surgical History History of ear surgery Family History Family History Grandparent Cancer Acute myocardial infarction Pancreatic cancer Social History Social History Smoking status: Never smoker Alcohol intake: current Alcohol use details: occas Substance use: never Exam 2 Narrative: GENERAL APPEARANCE: WELL-DEVELOPED, WELL-NOURISHED SKIN: NORMAL COLOR HEAD: NORMOCEPHALIC, NONTRAUMATIC EYES: CLEAR CONJUNCTIVA ENT: OROPHARYNX NORMAL, EARS NORMAL, NOSE NORMAL NECK: SUPPLE, NONTENDER CHEST AND RESPIRATORY: AIRWAY PATENT, NO RESPIRATORY DISTRESS, NO ACCESSORY MUSCLE USE, TENDERNESS LEFT CHEST WITH LIGHT PALPATION AND LEFT UPPER BACK. NO BRUISES, NO SWELLING, NO RASH HEART: REGULAR RATE/RHYTHM ABDOMEN: SOFT, NONTENDER, NO ORGANOMEGALY, QUIET BOWEL SOUNDS VASCULAR: NORMAL PERIPHERAL PULSES, NORMAL CAPILLARY REFILL. MUSCULOSKELETAL: NORMAL RANGE OF MOTION, NONTENDER BACK NEUROLOGIC: ALERT AND ORIENTED ?3, [employer] DIV[employer] DIRECTOR IS NORMAL TESTED, NO GROSS MOTOR DEFICIT Course Vital Signs Vital signs: Vital Signs Temperature 36.6 C 07/21/25 11:50 Pulse Rate 88 07/21/25 11:50 Respiratory Rate 20 07/21/25 11:50 Blood Pressure 130/88 07/21/25 11:50 Pulse Oximetry 100 07/21/25 11:50 Oxygen Delivery Room Air 07/21/25 11:50 Temperature 36.6 C 07/21/25 11:50 Pulse Rate 88 07/21/25 11:50 Respiratory Rate 20 07/21/25 11:50 Blood Pressure 130/88 07/21/25 11:50 Pulse Oximetry 100 07/21/25 11:50 Oxygen Delivery Room Air 07/21/25 11:50 [facility] Narrative Medical decision making narrative: PATIENT PRESENTS WITH LEFT CHEST PAIN, SHARP, STABBING, STARTED WOOD GRAINER AT REST. RADIATING TO LEFT UPPER BACK. PATIENT BEEN CLEANING PREPARING FOR THE AT HOME OVER THE LAST COUPLE DAYS AND WAS OVER REACHING TOO MUCH TO PLACE SOME STUFFE UP HIGH LEVEL CHELVES. CARDIAC SCORE IS 1 VITAL SIGNS ARE STABLE PHYSICAL EXAMINATION SHOWING TENDERNESS LEFT UPPER CHEST AND LEFT UPPER BACK CONSISTENT WITH MUSCULOSKELETAL DIFFERENTIAL DIAGNOSIS CHEST WALL MUSCULAR STRAIN/SPRAIN, LESS LIKELY CORONARY ARTERY DISEASE, PNEUMONIA, PULMONARY EMBOLISM BLOOD WORKUP TODAY INCLUDES CBC, CMP, TROPONIN D-DIMER SHOWED NO SIGNIFICANT ABNORMALITIES CHEST X-RAY SHOWED NO ACUTE ABNORMALITIES EKG SHOWED NORMAL SINUS RHYTHM CARDIAC SCORE IS 1 DIAGNOSIS CHEST WALL MUSCULAR STRAIN/SPRAIN DISCHARGED ON NAPROXEN CYCLOBENZAPRINE, MASSAGE, HEATING PAD THE PT WAS DISCHARGED TO HOME.THE PT,S CONDITION UPON DISCHARGE WAS FAIR,EDUCATION WAS PROVIDED TO THE PT IN REFERENCE TO THE FINAL IMPRESSION,DISCHARGE STUDY RESULTS,TREATMENT,PROGNOSIS AND NEED FOR FOLLOW UP . Differential Diagnosis Differential Diagnosis: ABOVE Lab Data [facility] Lab Attestation statement: I personally reviewed the patient's lab results. 07/21/25 18:30 07/21/25 18:30 Labs: Lab Results 07/21/25 Range/Units 18:30 WBC 9.5 (4.5-10.0) K/mm3 RBC 4.77 (4.2-5.4) M/mm3 Hgb 14.5 (12.0-15.0) g/dL Hct 42.6 (37.0-47.0) % MCV 89.3 (80-100) fl MCH 30.4 (26-34) pg MCHC 34.0 (32-36) g/dl RDW 12.8 (11.5-14.5) % Plt Count 365 (150-375) k/mm3 MPV 8.4 (7.4-10.4) fl Immature Gran % (Auto) 0.2 (0-0.5) % Neut % (Auto) 51.3 (45.5-73.1) % Lymph % (Auto) 34.0 (18.3-44.2) % [place] % (Auto) 7.8 (2.6-8.5) % Eos % (Auto) 6.2 H (0-4.4) % Baso % (Auto) 0.5 (0.2-1.2) % Lymph # (Auto) 3.22 H (0.9-3.2) K/mm3 [place] # (Auto) 0.7 H (0.1-0.6) K/mm3 Eos # (Auto) 0.6 H (0-0.3) K/mm3 Baso # (Auto) 0.1 (0.0-0.1) K/mm3 Abs Immat Gran (auto) 0.02 (0.00-0.031) K/mm3 Absolute Neuts (auto) 4.8 (1.3-6.7) K/mm3 Absolute Nucleated RBC 0.000 (0.0-0.012) K/mm3 Nucleated RBC % 0.0 (0.0-0.2) % PT 13.2 (11.1-14.7) Seconds INR 1.0 APTT 26.6 (22.3-36.8) Seconds D-Dimer 0.35 (<0.48) ug/mL Sodium 137 (137-145) mmol/L Potassium 3.4 (3.4-5.0) mmol/L Chloride 102 (98-107) mmol/L Carbon Dioxide 23 (22-30) mmol/L Anion Gap 12 (4-12) mmol/L BUN 10 (7-17) mg/dL Creatinine 0.74 (0.7-1.0) mg/dL Estim Creat Clear Calc 95 ml/min Estimated GFR > 60 (59 - ) Glucose 96 (65-110) mg/dL Calcium 9.3 (8.4-10.2) mg/dL Total Bilirubin 0.5 (0.2-1.3) mg/dL AST 25 (14-36) U/L ALT 27 (6-35) U/L Alkaline Phosphatase 67 (38-126) U/L Troponin I < 0.012 (0.000-0.034) ng/mL Total Protein 8.9 H (6.3-8.2) g/dL Albumin 4.9 (3.5-5.1) g/dL Lipase 75 (23-300) U/L Imaging Data Radiologist's impression: ITS Impressions Chest X-Ray 07/21/25 12:55 IMPRESSION: 1. No acute cardiopulmonary disease. ECG Data EKG #1: Attestation: I personally reviewed and interpreted this ECG as follows: ECG completion date: 07/21/25 Interpretation: NORMAL SINUS RHYTHM 84 BEATS PER MINUTE, BASELINE ARTIFACT, NORMAL EKG, NO PREVIOUS EKG AVAILABLE FOR COMPARISON Critical Care Time Critical Care Time Critical Care Time: No Discharge Plan Discharge Clinical Impression: Atypical chest pain Patient Disposition: Home Condition: Stable Instructions: Chest Wall Pain (ED) Additional Instructions: RETURN IF SYMPTOMS ARE WORSENING , CALL YOUR FAMILY PHYSICIAN FOR APPOINTMENT, TAKE TYLENOL NEEDED FOR ACHES AND PAIN, CONTINUE HOME MEDICATIONS. MASSAGE HEATING PAD EXERCISE Patient Language: Ugandan Prescriptions: New naproxen [Naprosyn] 500 mg tablet 500 mg PO BID PRN (Reason: pain) Qty: 14 0RF cyclobenzaprine 10 mg tablet 10 mg PO TID PRN (Reason: muscle spasm) Qty: 20 0RF No Action phentermine 37.5 mg capsule 37.5 mg PO DAILY Rx Instructions: must administer 30 minutes before or 1-2 hours after breakfast Mirena 21 mcg/24hr (up to 8 yrs) 52 mg intrauterine device 1 device intrauterine ONCE Rx Instructions: as a single dose Follow-up/Referrals: RUKHSANA,JONNY FRIAS [Primary Care Provider] Quality HEART score for chest pain patients History: slightly suspicious ECG: normal Age: < or = to 45 years Risk factors: 1 or 2 risk factors Troponin: < or = to 1x normal limit Heart score: 1
--- OUTSIDE RECORDS SUMMARY | 2025-07-21 18:42 | XMS_ITS | Encounter Summary ---
Author Organization [facility] Address [address] [place] [id number] Care Team Providers Care Environmental Program Manager Name Role Phone Deann Espitia Primary Care Provider [phone] Encounter Details Date Type Department Care Team (Late st Contact Info) Description 04/01/2024 Rawportert Message Enc [facility] Medical [facility] Family & Internal Medicine [facility] [address] [place] [phone] Deann Espitia FNP [address] [place], [place] [id number] refill question Social History Tobacco Use Types [...] Sex Assigned at Female 05/31/2025 2:22 PM DROP COUNT ASSOCIATE Legal Sex Female 10:39 AM DROP COUNT ASSOCIATE Gender Identity Female 05/31/2025 2:22 PM DROP COUNT ASSOCIATE Sexual Orientation Not on file documented as [...] documented as of this encounter Care Teams Environmental Program Manager Relationship Specialty Start Date End Date Deann Espitia FNP [address] [place] [id number] PCP - General Nurse Practitioner Family 02/28/24 documented as of this encounter
--- OUTSIDE RECORDS SUMMARY | 2025-07-21 18:42 | XMS_ITS | Encounter Summary ---
Author Organization [facility] Address [address] [place] [address] Care Team Providers Care Wire Coiner Name Role Phone Deann Espitia Primary Care Provider [phone] Encounter Details Date Type Department Care Team (Late st Contact Info) Description 06/29/2025 Results Follow-Up [facility] Medical [facility] Family & Internal Medicine - [place] [address] [place] [address] Deann Espitia FNP [address] [place], [place] [id number] HEMOGLOBIN, GLYCOSYLATED, MAGNESIUM, FOLIC ACID SERUM, Additional [...] Sex Assigned at Female 05/31/2025 2:22 PM MOTORIZED SQUAD SERGEANT Legal Sex Female 10:39 AM MOTORIZED SQUAD SERGEANT Gender Identity Female 05/31/2025 2:22 PM MOTORIZED SQUAD SERGEANT Sexual Orientation Not on file documented as [...] of D3 daily Other labs look good RIZED SQUAD SERGEANT documented in this encounter Plan of Treatment Not on file documented as of this encounter Visit Diagnoses Not on filedocumented in this encounter Additional Health Concerns Assessment Noted Time PHQ-9 Depression Total Score: 4 05/31/20 25 2:43 PM MOTORIZED SQUAD SERGEANT documented as of this encounter Care Teams Wire Coiner Relationship Specialty Start Date End Date Deann Espitia FNP [address] [place] [phone] PCP - General Nurse Practitioner Family 02/28/24 documented as of this encounter
[2025-07-21 18:43] LABS: Hematocrit 42.6 % (37.0-47.0); Hemoglobin 14.5 g/dL (12.0-15.0); Immature Granulocyte Percent A 0.2 % (0-0.5); Lymphocytes Absolute Auto 3.22 K/mm3 (0.9-3.2); Mean Corpuscular HGB Conc 34.0 g/dl (32-36); Mean Corpuscular Hemoglobin 30.4 pg (26-34); Mean Corpuscular Volume 89.3 fl (80-100); Nucleated Red Blood Cells Absolute Auto 0.000 K/mm3 (0.0-0.012); Nucleated Red Blood Cells Perc 0.0 % (0.0-0.2); Platelet Count Result 365 k/mm3 (150-375); Red Blood Count 4.77 M/mm3 (4.2-5.4); White Blood Count 9.5 K/mm3 (4.5-10.0)
[2025-07-21 18:54] LABS: Alanine Aminotransferase 27 U/L (6-35); Albumin Level 4.9 g/dL (3.5-5.1); Alkaline Phosphatase 67 U/L (38-126); Anion Gap 12 mmol/L (4-12); Aspartate Amino Transferase 25 U/L (14-36); Bilirubin,Total 0.5 mg/dL (0.2-1.3); Blood Urea Nitrogen 10 mg/dL (7-17); Calcium 9.3 mg/dL (8.4-10.2); Carbon Dioxide 23 mmol/L (22-30); Chloride 102 mmol/L (98-107); Estimated CRCL calculation 95 ml/min; Estimated Glomerular Filt Rate > 60; Glucose 96 mg/dL (65-110); Lipase 75 U/L (23-300); Potassium 3.4 mmol/L (3.4-5.0); Sodium 137 mmol/L (137-145); Total Protein 8.9 g/dL (6.3-8.2)
[2025-07-21 19:05] LABS: Troponin I < 0.012 ng/mL (0.000-0.034)
[2025-07-21 19:33] LABS: INR 1.0; Partial Thromboplastin Time 26.6 Seconds (22.3-36.8); Prothrombin Time 13.2 Seconds (11.1-14.7)
[2025-07-21] MEDS: IBUPROFEN 600 MG TABLET PO (19:47)
[2025-07-21] MEDS: ACETAMINOPHEN 325 MG TABLET 650 MG PO (19:47)
== END 2025-07-21 20:07 | disposition home or self-care (01) ==
PROVIDERS: Emergency Medicine; Emergency Provider Emergency Medicine; PCP Nurse Practitioner Family
DX: R07.89 Other chest pain (principal)
CPT/HCPCS: 36415; 71046; 80053; 83690; 84484; 85025; 85380; 85610; 85730; 93005; 99284; A9270